=== PATIENT | male | born 1955 | race Caucasian/White ===

== ENCOUNTER 2024-10-19 10:15 | Emergency (ER) | payer MEDICARE, OTHER, SELFPAY ==
[2024-10-19 10:16] VITALS: BP 165/89
--- NOTE | 2024-10-19 11:53 | ED.GENMED ---
History of Present Illness
General
Chief Complaint: Head Injury
Source: patient
Exam Limitations: none
Time Seen by Provider: 10/19/24 10:50
Nursing documentation reviewed up to this point in time: agreed with
History of Present Illness
History of Present Illness:
68-year-old male with history 3 of HTN takes losartan, states he was in [place] on 10/13, was walking in the door with groceries in his arms and struck the left side of his forehead on a house frame. There was no loss of consciousness. He had a bit
of a headache since then, on 10[place]15 [place] to the airport, developed pressure pain across his forehead. He flew home. Took naproxen with a little help from the headache but it did not last long. He states the headache across his forehead comes and
goes. 3 days ago, he felt well he went back to his exercising on a stationary bike, the next day he played 2 hours of intense tennis and his head started bothering him again. Yesterday he rested with pain and pressure moving all around his head
this time but mostly in the forehead. He slept well during the night. He states his appetite has been poor but there is been no nausea or vomiting. He denies dizziness or trouble ambulating.
Right now the left side of his forehead is 'a little sore.'
Past History
Past History
ED Past Medical History: Other (Sinusitis)
ED Past Surgical History: Other (Endoscopic sinus surgery)
Social History
Tobacco: Non-smoker
Alcohol: Occasional
Drug: None
Personal:
Living: with family
Employment: Employed
Family History
Family History: CAD
Review of Systems
Review of Systems
Allergies reviewed?: Yes
All Other Systems: ROS reviewed and negative except as documented in HPI and ROS
Constitutional: Denies fatigue
Cardiac: Denies chest pain or syncope
ABD/GI: Denies abdominal pain, nausea or vomiting
Musculoskeletal: Reports no symptoms
Skin: Reports no symptoms
Neurological: Reports headache; Denies dizzy, weakness or numbness
Phy Exam
Physical Exam
Physical Exam:
GENERAL: No acute distress. A&Ox3.
CONSTITUTIONAL: Afebrile.
EYES: clear, conjunctivae normal
ENMT: moist mucus membranes, Pharynx nl
RESPIRATORY: Regular respirations, nonlabored, lungs clear.
CARDIOVASCULAR: Regular rate and rhythm, no murmurs, no rubs.
GI: Soft, nontender
MUSCULOSKELETAL: Moves with ease. Well perfused.
SKIN: Warm, dry, pink
PSYCH: Normal mood and affect. Well kept, interactive and appropriate
NEUROLOGIC: Awake, alert and oriented. Cranial nerves II through XII intact. Ambulates well with steady gait. No focal neurological deficits
Course
Orders/Labs/Results
Orders:
Orders
10/19/24 10:50
CT Head W/o Iv Contrast Urgent
Comment:
Reason For Exam: h/a post head injury
Vital Signs
Initial and Last Documented VS:
Initial Vital Signs
Temp Pulse Resp BP Pulse Ox
97.5 F 63 16 165/89 99
10/19/24 10:16 10/19/24 10:16 10/19/24 10:16 10/19/24 10:16 10/19/24 10:16
Last Documented Vital Signs
Temp Pulse Resp BP Pulse Ox
97.5 F 53 18 147/80 99
10/19/24 10:16 10/19/24 12:34 10/19/24 12:34 10/19/24 12:34 10/19/24 12:34
MDM/Problems Addressed
Differential Diagnosis Includes:
Concussion, head bleed
MDM/Problems Addressed:
68-year-old male with history 3 of HTN takes losartan, states he was in [place] on 10/13, was walking in the door with groceries in his arms and struck the left side of his forehead on a house frame. There was no loss of consciousness. He had a bit
of a headache since then, on 10/15 [place] to the airport, developed pressure pain across his forehead. He flew home. Took naproxen with a little help from the headache but it did not last long. He states the headache across his forehead comes and
goes. 3 days ago, he felt well he went back to his exercising on a stationary bike, the next day he played 2 hours of intense tennis and his head started bothering him again. Yesterday he rested with pain and pressure moving all around his head
this time but mostly in the forehead. He slept well during the night. He states his appetite has been poor but there is been no nausea or vomiting. He denies dizziness or trouble ambulating.
Right now the left side of his forehead is 'a little sore.'
IMPRESSION:
No acute intracranial abnormality.
Mild mucosal thickening within the visualized paranasal sinuses.
Patient's neuro exam is normal
Ambulating well with steady gait
I believe he may have a mild concussion, he went back to intense exercising too early, he has been instructed for no exertional activities until his symptoms are gone.
Refer to neurology if needed
Patient ambulated out with normal gait on discharge
*Critical Care Note
Total Time (30-74mins, 75-104mins- exclusive of procedures): Not Applicable
ED Attending Note
-
Portions of this chart may have been created with voice recognition software.� Occasional wrong word or��sound alike� substitutions may have occurred due to the inherent limitations of voice recognition software.
Discharge Plan
Departure
Patient Disposition: Home (Routine Discharge)
Date of Disposition: 10/19/24
Time of Disposition: 12:10
Patient with high blood pressure during this ER visit?: Yes
Condition: Good
Discharge Problem:
Acute post-traumatic headache
Instructions: Concussion, Adult (DC)
Prescriptions:
No Action
[place]-3 Fish Oil 1,000 mg Sfgl
1 tab PO DAILY
SAW PALMETTO
1 tab PO DAILY
Tumeric
1 cap PO DAILY
Vitamin C:
2,000 mg PO DAILY
Referrals:
Horacio Quevedo MD [Active] - As needed
Vadim lBake, [Family Provider] -
Activity Restrictions/Additional Instructions:
As we discussed, nothing worrisome in your exam here today. Your head CT is normal.
You may have a mild concussion.
No exertional exercise for the next week. Then resume your activities slowly, gradually.
See your doctor or the neurologist if your headache is not completely gone within 2 to 3 weeks.
Interventions
Interventions:
*Nursing Disposition Last Done: 10/19/24 12:35
ED- Neurological Assessment Last Done: 10/19/24 12:34
ED-Skin Assessment Last Done: 10/19/24 12:34
Discharge Date and Time
Discharge Date/Time: 10/19/24 12:36
Print Language: MACEDONIAN
[2024-10-19 12:34] VITALS: BP 147/80
== END 2024-10-19 12:36 | disposition home or self-care (01) ==
LOC: EMR 10:15
PROVIDERS: EMERGENCY PHYSICIAN Student in an Organized Health Care Education/Training Program; FAMILY PHYSICIAN Internal Medicine
DX: G44.319 Acute post-traumatic headache, not intractable (principal); I10 Essential (primary) hypertension; Z79.899 Other long term (current) drug therapy
CPT/HCPCS: 99284; 70450